=== PATIENT | male | born 1995 | race Caucasian/White ===

== ENCOUNTER 2021-10-28 07:31 | Emergency (ER) | payer OTHER, BC ==
[2021-10-28] MEDS ORDERED: ONDANSETRON 4 MG (ZOFRAN) ORAL DISSOLVE TAB PO STA (07:51)
--- NOTE | 2021-10-28 07:54 | ED Fall/Injury ---
General Chief Complaint: Laceration Stated Complaint: HEAD LAC; FALL Source: patient Exam Limitations: no limitations History of Present Illness Date Seen by Provider: Oct 28, 2021 Time Seen by Provider: 07:33 Initial Comments 26-year-old male with no pertinent past medical history coming in after he tripped backwards hitting the back of his head. He did not pass out, remembers all events, did have some nausea and dry heaving. Occurred about an hour prior to arrival. Does have a moderate constant throbbing headache in the back of his head which nothing seems to make better or worse. Endorses a laceration to the back of his head. Does not take any blood thinners. Is otherwise denying any other acute complaints including any neck pain, weakness, numbness, vision changes, or any other concerns Allergies and Home Medications Allergies Coded Allergies: No Known Drug Allergies (Unverified , 10/28/21) Patient Home Medication List Home Medication List Reviewed: Yes Ondansetron (Ondansetron Odt) 4 Mg Tab.rapdis, 4 MG PO Q6H PRN for NAUSEA/VOMITING-1ST LINE Prescribed by: MARLENE EMERSON on 10/28/21 0821 Review of Systems Review of Systems Constitutional: No fever Eyes: Denies Blurred Vision Ears, Nose, Mouth, Throat: no symptoms reported Respiratory: no symptoms reported Cardiovascular: no symptoms reported Gastrointestinal: no symptoms reported Genitourinary: no symptoms reported Musculoskeletal: no symptoms reported Skin: see HPI Psychiatric/Neurological: Headache All Other Systems Reviewed Negative Unless Noted: Yes Past [id number]-Hqyrph-[id number] Hx Patient Social History Tobacco Use?: No Use of E-Cig and/or Vaping dev: Yes E-Cig or Vaping type used: Nicotine Substance use?: No Alcohol Use?: Yes Alcohol Frequency: Once in a while Pt feels they are or have been: No Immunizations Up To Date First/Initial COVID19 Vaccinat: Yes Second COVID19 Vaccination Vinny: Yes Past Medical History Surgery/Hospitalization HX: None Surgeries: No Physical Exam Vital Signs Vital Signs - First Documented 10/28/21 07:46 Temp 36.4 Pulse 72 Resp 16 B/P (MAP) 115/67 (83) Pulse Ox 98 O2 Delivery Room Air Capillary Refill : Height, Weight, BMI Height: '" Weight: lbs. oz. kg; BMI Method: General Appearance: WD/WN, no apparent distress HEENT: PERRL/EOMI, normal ENT inspection, pharynx normal, other (3cm laceration to the back of the scalp) Neck: non-tender, full range of motion, supple, normal inspection Cardiovascular: regular rate, rhythm, no edema, no murmur Respiratory: chest non-tender, lungs clear, normal breath sounds, no respiratory distress, no accessory muscle use Gastrointestinal: normal bowel sounds, non tender, soft; No distended, No guarding, No rebound Back: normal inspection, no CVA tenderness, no vertebral tenderness Extremities: normal range of motion, non-tender, normal inspection, no pedal edema, no calf tenderness Neurologic/Psychiatric: script girl II-XII nml as tested, no motor/sensory deficits, alert, normal mood/affect, oriented x 3, other (normal gait) Skin: normal color, warm/dry Lymphatic: no adenopathy Lola Coma Score Best Eye Response: (4) Open Spontaneously Best Verbal Response: (5) Oriented Best Motor Response: (6) Obeys Commands Procedures/Interventions Wound Location: Scalp Other Wound Location back of scalp Wound Length (cm): 3 Wound's Depth, Shape: superficial Wound Explored: clean Irrigated w/ Saline (ccs): 400 Other Closure Supply: Wound Adhesive Progress Hair apposition technique utilized to close the wound since it was superficial and the wound was well opposed already. Patient tolerated this well Progress/Results/Core Measures Results/Orders My Orders Orders - MARLENE EMERSON MD Dipht,Pertuss(Acell),Tet Adult (Boostrix (10/28/21 08:00) Ondansetron Oral Dissolve Tab (Zofran (10/28/21 07:51) Ct Head Wo (10/28/21 07:51) Acetaminophen Tablet (Tylenol Tablet) (10/28/21 08:00) Medications Given in ED Current Medications Medications Dose Ordered Sig/Justyn Route Start Time Stop Time Status Last Admin Dose Admin Acetaminophen 1,000 mg ONCE ONCE PO 10/28/21 08:00 10/28/21 08:01 DC 10/28/21 07:59 1,000 MG Diphtheria/ Tetanus/Acell Pertussis 0.5 ml ONCE ONCE IM 10/28/21 08:00 10/28/21 08:01 DC 10/28/21 08:01 0.5 ML Vital Signs/I&O 10/28/21 07:46 Temp 36.4 Pulse 72 Resp 16 B/P (MAP) 115/67 (83) Pulse Ox 98 O2 Delivery Room Air Progress Progress Note : Progress Note 26-year-old male coming in after hitting the back of his head causing a laceration. ABCs were intact, GCS 15, vital stable on presentation. Laceration was cleaned and closed with tissue adhesive. CT head obtained due to his headache with his nausea and dry heaving and negative for acute abnormalities. Given Tylenol and oral Zofran for headache and nausea. Tetanus was updated today. I believe he is stable for discharge with outpatient follow-up. He was sent home with strict return precautions Diagnostic Imaging Diagonstic Imaging: CT (head) Comments NAME: LEENA MCCRACKEN [facility] REC#: [id number] PT STATUS: REG ER : 1995 PHYSICIAN: MARLENE EMERSON MD ADMIT DATE: 10/28/21/ER FS Draft Date of Exam:10/28/21 CT HEAD WO Indication: Fall with injury to head, head laceration TECHNIQUE: Multiple contiguous axial images were obtained through the brain without the use of intravenous contrast. Auto Exposure Controls were utilized during the CT exam to meet ALARA standards for radiation dose reduction. There is no previous study for comparison. There were no extra-axial fluid collections. No intracranial hemorrhage. No intracranial mass or mass effect. No midline shift. The ventricles are normal in size and position. There were no focal parenchymal abnormalities in the brain. Calvarial windows show no fracture. There is some mucosal thickening and fluid in both maxillary sinuses. There is some fluid in the frontal sinuses and ethmoid air cells. Impression: No acute intracranial abnormality or calvarial fracture. Underlying sinus disease as described above. Dictated on workstation # [id number] Dict: 10/28/21817 Trans: 10/28/21821 [facility] [id number] Interpreted by: FLORIAN MOORE MD Electronically signed by: Departure Impression Primary Impression: Scalp laceration Qualified Codes: S01.01XA - Laceration without foreign body of scalp, initial encounter Additional Impression: Concussion Qualified Codes: S06.0X0A - Concussion without loss of consciousness, initial encounter Disposition: 01 HOME, SELF-CARE Condition: Stable Departure-Patient Inst. Decision time for Depature: 08:30 Referrals: PRATIK JUDGE MD (PCP) Primary Care Physician Patient Instructions: Laceration Repair With Glue ED, Concussion, Adult ED Add. Discharge Instructions: Do not let the glue get wet for at least 24 hours. After that, water can run over it briefly but do not submerge it in water. After 1 week you can get into water fully and if the glue is still there work on getting it out. He did have a concussion as well. It is okay to sleep is much as you need. Take ibuprofen or Tylenol as needed for headache. Nausea medicines were sent to your pharmacy if needed. When you feel back to your normal you can drive and work. Scripts Ondansetron (Ondansetron Odt) 4 Mg Tab.rapdis 4 MG PO Q6H PRN for NAUSEA/VOMITING-1ST LINE for 5 Days, #20 TAB Prov: MARLENE EMERSON MD 10/28/21 Work/School Note: Work Release Form Date Seen in the Emergency Department: Oct 28, 2021 Return to Work: Oct 29, 2021 MARLENE EMERSON MD Oct 28, 2021 07:54
[2021-10-28] MEDS ORDERED: TETANUS,DIPTH,PERTUSS P/F (BOOSTRIX) 0.5 ML VIAL IM ONE (08:00)
[2021-10-28] MEDS ORDERED: ACETAMINOPHEN 500 MG TAB (TYLENOL) PO ONE (08:00)
[2021-10-28] MEDS ORDERED: ONDA4TAB11 PO (08:21)
--- NOTE | 2021-10-28 08:22 | Diagnostic Imaging Report ---
Indication: Fall with injury to head, head laceration TECHNIQUE: Multiple contiguous axial images were obtained through the brain without the use of intravenous contrast. Auto Exposure Controls were utilized during the CT exam to meet ALARA standards for radiation dose reduction. There is no previous study for comparison. There were no extra-axial fluid collections. No intracranial hemorrhage. No intracranial mass or mass effect. No midline shift. The ventricles are normal in size and position. There were no focal parenchymal abnormalities in the brain. Calvarial windows show no fracture. There is some mucosal thickening and fluid in both maxillary sinuses. There is some fluid in the frontal sinuses and ethmoid air cells. Impression: No acute intracranial abnormality or calvarial fracture. Underlying sinus disease as described above. Dictated by: Dictated on workstation # [id number]
[2021-10-28 08:30] VITALS: BP 110/62
== END 2021-10-28 08:30 | disposition home or self-care (01) ==
LOC: ER FS 07:35
DX: S06.0X0A Concussion without loss of consciousness, initial encounter (principal); S01.01XA Laceration without foreign body of scalp, initial encounter; Z23 Encounter for immunization; W01.0XXA Fall on same level from slipping, tripping and stumbling without subsequent striking against object, initial encounter; W22.8XXA Striking against or struck by other objects, initial encounter
CPT/HCPCS: 70450; 90715